=== PATIENT | male | born 1990 | race Caucasian/White ===

== ENCOUNTER 2023-09-02 23:27 | Emergency (ER) | payer MEDICAID ==
[~2023-09-02] VITALS: Ht 188 cm; Wt 88.5 kg
[2023-09-03 00:34] LABS: APPEARANCE,URINE CLEAR (CLEAR); BILIRUBIN,URINE NEGATIVE (NEGATIVE); BLOOD, URINE TRACE-INTA Ery/uL (NEGATIVE); COLOR,URINE YELLOW (YELLOW); KETONES,URINE NEGATIVE (NEGATIVE); LEUKOCYTE ESTERASE ,URINE NEGATIVE (NEGATIVE); NITRITE, URINE NEGATIVE (NEGATIVE); PH,URINE 6.5 (5.0-8.0); PROTEIN,URINE 2+ mg/dl (NEGATIVE); UGLUCOSE NEGATIVE (NEGATIVE); UROBILINOGEN,URINE 0.2 EU/dL (0.2)
[2023-09-03 01:14] LABS: ADD URINE CULTURE NO; BACTERIA,URINE None seen /HPF (None Seen); MUCUS,URINE Moderate /LPF (None Seen); RBC,URINE 0-2 /HPF (0-2); SQUAMOUS EPITHELIAL CELL,UR None Seen /HPF (None Seen); WBC,URINE NONE SEEN /HPF (0-3)
[2023-09-03] MEDS ORDERED: CEFTRIAXONE 500 MG VIAL ONE ×2 (03:41→03:44)
[2023-09-03] MEDS ORDERED: LIDOCAINE 1% INJ 50 ML MDV IJ ONE (03:42)
[2023-09-03] MEDS: CEFTRIAXONE 500 MG VIAL IM ONE ×2 (03:45→03:47)
[2023-09-03] MEDS ORDERED: DOXY100C2 PO (03:47)
[2023-09-03] MEDS ORDERED: LIDOCAINE 1%-EPI 1:100,000 20 ML VIAL ONE (03:48)
[2023-09-03 03:52] VITALS: BP 126/72; TEMP 98; O2SAT 98
[2023-09-05 03:07] LABS: CHLAMYDIA TRACHOMATIS NAA Negative (Negative); NEISSERIA GONORRHOEAE NAA Negative (Negative)
== END 2023-09-03 03:53 | disposition home or self-care (01) ==
LOC: ER 23:27
DX: N45.1 Epididymitis (principal); N50.812 Left testicular pain
CPT/HCPCS: 99285; 96372; 76870; 81001; 87491; 87591; J3490 ×2; J0696 ×2

== ENCOUNTER 2025-01-03 21:44 | Emergency (ER) | payer MEDICAID, OTHER ==
[~2025-01-03] VITALS: Ht 188 cm; Wt 77.1 kg
[~2025-01-03 21:44] MED LIST: DOXY100C2 PO
[2025-01-03 23:13] VITALS: BP 165/98; TEMP 98.2; O2SAT 99
[2025-01-03] MEDS ORDERED: DOXYCYCLINE HYCLATE (100 MG) 100 MG TABLET ONE (23:32)
[2025-01-03] MEDS: DOXYCYCLINE HYCLATE (100 MG) 100 MG TABLET PO ONE (23:35)
[2025-01-03] MEDS ORDERED: DOXY100C2 PO (23:49)
== END 2025-01-04 00:51 | disposition home or self-care (01) ==
LOC: ER 21:53
DX: N48.22 Cellulitis of corpus cavernosum and penis (principal); Z60.2 Problems related to living alone